=== PATIENT | male | born 1935 | race Caucasian/White ===

== ENCOUNTER 2017-12-02 09:32 | Emergency (ER) | payer MEDICARE, BC ==
[2017-12-02 09:53] VITALS: BP 160/80
--- NOTE | 2017-12-02 10:18 | EDM.PDOC ---
ED HPI GENERAL MEDICAL PROBLEM - General Chief Complaint: Lower Extremity Injury/Pain Stated Complaint: RIGHT KNEE PAIN Time Seen by Provider: 12/02/17 10:17 Source of Information: Reports: Patient History Limitations: Reports: No Limitations - History of Present Illness INITIAL COMMENTS - FREE TEXT/NARRATIVE: Pt arrived with pain in the rt knee. He was loading a trencher onto the trailer and he twisted the knee. Onset: Gradual, Other (Last 2 days. He has pain when he walks on it. ) Duration: Hour(s): Location: Reports: Lower Extremity, Right Associated Symptoms: Reports: No Other Symptoms Right Knee Pain Score (Numeric/FACES): 6 - Related Data Allergies Allergy/AdvReac Type Severity Reaction Status Date / Time No Known Allergies Allergy Verified 12/02/17 10:07 Home Meds: Home Meds Escitalopram [Lexapro] 20 mg PO DAILY 03/30/14 [History] Hydrocodone/Acetaminophen [[place] 5-325] 1 tab PO Q4H PRN 03/30/14 [History] Mirtazapine [Remeron] 30 mg PO BEDTIME 03/30/14 [History] Omeprazole [Prilosec] 20 mg PO DAILY 03/30/14 [History] traZODone 100 mg PO BEDTIME 03/30/14 [History] Past Medical History HEENT History: Reports: Hard of Hearing, Impaired Vision Respiratory History: Reports: Asthma, Pneumonia, Recurrent Gastrointestinal History: Reports: GERD Musculoskeletal History: Reports: Fracture, Osteoarthritis Neurological History: Reports: Concussion, MS Psychiatric History: Reports: Depression Oncologic (Cancer) History: Reports: Basal Cell Carcinoma Dermatologic History: Reports: Melanoma - Past Surgical History HEENT Surgical History: Reports: Oral Surgery, Tonsillectomy GI Surgical History: Reports: Colonoscopy, Hernia Repair/Other Musculoskeletal Surgical History: Reports: Hip Replacement, Shoulder Surgery Other Musculoskeletal Surgeries/Procedures:: bilateral hip replacement Dermatological Surgical History: Reports: Skin Biopsy Social & Family History - Tobacco Use Smoking Status *Q: Never Smoker - Caffeine Use Caffeine Use: Reports: Coffee - Recreational Drug Use Recreational Drug Use: No Review of Systems - Review of Systems Review Of Systems: See Below Constitutional: Reports: No Symptoms Eyes: Reports: No Symptoms Ears: Reports: No Symptoms Nose: Reports: No Symptoms Mouth/Throat: Reports: No Symptoms Respiratory: Reports: No Symptoms Cardiovascular: Reports: No Symptoms GI/Abdominal: Reports: No Symptoms Musculoskeletal: Reports: Other ( sEVERE PAIN IN THE RT KNEE. ) Skin: Reports: No Symptoms Neurological: Reports: No Symptoms ED EXAM, GENERAL - Physical Exam Exam: See Below Free Text/Narrative:: PT ARRIVED WITH SEVERE PAIN IN THE RT KNEE. hE DID A TWISTING MOTION WHEN HE WAS LOADING A TRENCHER. hE IS ON HYDROCODONE AND THIS IS NOT TOUCHING HIS PAIN. hE MAINLY HURTS WHEN HE WALKS ON THE KNEE. Exam Limited By: No Limitations General Appearance: Alert, Anxious, Moderate Distress Ears: Normal TMs Extremities: Other ( RT KNEE IS MILDLY SWOLLEN. iT IS NOT DISCOLORED. iT IS VERY PAINFUL WHEN HE TRIES TO WALK WITH IT. ) Neurological: Alert, Oriented, Normal Cognition Course - Vital Signs Last Recorded V/S: Last Vital Signs Temp 36.4 C 12/02/17 10:09 Pulse 53 L 12/02/17 10:09 Resp 13 12/02/17 10:09 BP 160/80 H 12/02/17 10:09 Pulse Ox 94 L 12/02/17 10:09 - Orders/Labs/Meds Meds: Medications Discontinued Medications Generic Name Dose Route Start Last Admin Trade Name Freq PRN Reason Stop Dose Admin Oxycodone/Acetaminophen 1 tab 12/02/17 11:13 Percocet 325-5 Mg PO 12/02/17 11:14 ONETIME ONE - Re-Assessments/Exams Free Text/Narrative Re-Assessment/Exam: 12/02/17 11:51 XRAY REVEALS A JOINT EFFUSION. hE HAS NO FRACTURES. wILL PLACE A KNEE IMBOLIZER. COOL PACK THE SITE. CONTINUE TO USE THE WALKER. hIS HYDROCODONE WILL BE ON HOLD AND HE WILL BE SWITCHED TO PERCOCET FOR THE NEXT 2-3 DAYS AND THEN RESUME THE HYDROCODONE. hE WILL SEE dR Wagner IN 5-6 DAYS. iF NO BETTER HE SHOULD HAVE A mRi Departure - Departure Time of Disposition: 11:18 Disposition: Home, Self-Care 01 Condition: Fair Clinical Impression: Joint effusion of knee, Sprain of knee - Discharge Information Referrals: Charles Mata MD [Primary Care Provider] - Forms: ED Department Discharge Care Plan Goals: pt has no fractures but does have fluid on the joint. knee imbolizer, cont to use the waLKER, ICE TO THE RT KNEE. REPLACE HYDROCPODONE FOR THE NEXT 3 DAYS WITH PERCOCET THEN RESUME THE HYDROCODONE, APPT WITH dR Mata IN 6-7 DAYS, iF NOT IMPROVING WILL NEED A mri OF THE JOINT. F
--- NOTE | 2017-12-02 11:10 | CR ---
Knee 3V Rt INDICATION: pain in the rt knee. COMPARISON: None FINDINGS: 3 views. No fracture, dislocation, or other acute bony abnormality. There is a joint ef fusion. No joint space narrowing.
[2017-12-02] MEDS ORDERED: Acetaminophen/oxyCODONE 325-5 MG Tab PO ONE (11:13)
== END 2017-12-02 12:03 | disposition home or self-care (01) ==
LOC: JP.ED 09:32
DX: S83.91XA Sprain of unspecified site of right knee, initial encounter (principal); M19.90 Unspecified osteoarthritis, unspecified site; Z79.899 Other long term (current) drug therapy; X50.9XXA Other and unspecified overexertion or strenuous movements or postures, initial encounter
CPT/HCPCS: 73562-26-RT; 73562-RT; 99284

== ENCOUNTER 2019-09-05 10:29 | Emergency (ER) | payer BC, MEDICARE ==
[2019-09-05 10:37] VITALS: BP 190/66; PULSE 57
[2019-09-05] MEDS ORDERED: HYDROmorphone 0.5 MG/0.5 ML Syringe IVPUSH ONE (11:05)
[2019-09-05] MEDS ORDERED: Sodium Chloride 0.9% 10 ML Syringe FLUSH PRN (11:06)
[2019-09-05] MEDS ORDERED: Diphtheria,Pertussis(Acell),Tetanus Vaccine 0.5 ML SDV IM ONE (11:09)
--- NOTE | 2019-09-05 11:10 | EDM.PDOC ---
ED HPI GENERAL MEDICAL PROBLEM - General Chief Complaint: Laceration Stated Complaint: CUT THE TIP OF HIS LEFT THUMB Time Seen by Provider: 09/05/19 11:08 Source of Information: Reports: Patient History Limitations: Reports: No Limitations - History of Present Illness INITIAL COMMENTS - FREE TEXT/NARRATIVE: pt arrived with a ampitation of the tip of the thumb. He was in the shop and cut the tip of the thumb off down to the level of the mid finger nail. Onset: Today, Sudden Duration: Hour(s): Location: Reports: Upper Extremity, Left Severity: Moderate Associated Symptoms: Reports: No Other Symptoms Left Finger-Thumb Pain Score (Numeric/FACES): 7 - Related Data Allergies Allergy/AdvReac Type Severity Reaction Status Date / Time No Known Allergies Allergy Verified 12/02/17 10:07 Home Meds: Home Meds Escitalopram [Lexapro] 20 mg PO DAILY 03/30/14 [History] Hydrocodone/Acetaminophen [[place] 5-325] 1 tab PO Q4H PRN 03/30/14 [History] Mirtazapine [Remeron] 30 mg PO BEDTIME 03/30/14 [History] Omeprazole [Prilosec] 20 mg PO DAILY 03/30/14 [History] traZODone 100 mg PO BEDTIME 03/30/14 [History] Past Medical History HEENT History: Reports: Hard of Hearing, Impaired Vision Respiratory History: Reports: Asthma, Pneumonia, Recurrent Gastrointestinal History: Reports: GERD Musculoskeletal History: Reports: Fracture, Osteoarthritis Neurological History: Reports: Concussion, MS Psychiatric History: Reports: Depression Oncologic (Cancer) History: Reports: Basal Cell Carcinoma Dermatologic History: Reports: Melanoma - Past Surgical History HEENT Surgical History: Reports: Oral Surgery, Tonsillectomy GI Surgical History: Reports: Colonoscopy, Hernia Repair/Other Musculoskeletal Surgical History: Reports: Hip Replacement, Shoulder Surgery Other Musculoskeletal Surgeries/Procedures:: bilateral hip replacement Dermatological Surgical History: Reports: Skin Biopsy Social & Family History - Tobacco Use Smoking Status *Q: Never Smoker - Caffeine Use Caffeine Use: Reports: Coffee - Alcohol Use Days Per Week of Alcohol Use: 7 Number of Drinks Per Day: 2 Total Drinks Per Week: 14 - Recreational Drug Use Recreational Drug Use: No ED ROS GENERAL - Review of Systems Review Of Systems: See Below Constitutional: Reports: No Symptoms HEENT: Reports: No Symptoms Respiratory: Reports: No Symptoms Cardiovascular: Reports: No Symptoms Endocrine: Reports: No Symptoms GI/Abdominal: Reports: No Symptoms : Reports: No Symptoms Musculoskeletal: Reports: Other ( amputaion of the left thumb. ) ED EXAM, SKIN/RASH Exam: See Below Text/Narrative:: pt arrived with a mputation of the very tip of the left thumb. A very small piece of the tuft is removed. Exam Limited By: No Limitations General Appearance: Alert Extremities: Other (left thumb gor caught in a table saw and the very tip was amputated. ) Neurological: Alert, Oriented, Normal Cognition Course - Vital Signs Last Recorded V/S: Last Vital Signs Temp 35.8 C L 09/05/19 10:38 Pulse 57 L 09/05/19 10:38 Resp 16 09/05/19 10:38 BP 190/66 H 09/05/19 10:38 Pulse Ox 96 09/05/19 10:38 - Orders/Labs/Meds Meds: Medications Discontinued Medications Generic Name Dose Route Start Last Admin Trade Name Freq PRN Reason Stop Dose Admin Diphtheria/Tetanus/Acell Pertussis 0.5 ml 09/05/19 11:09 09/05/19 11:31 Adacel IM 09/05/19 11:10 0.5 ml .ONCE ONE Administration Hydromorphone HCl 0.5 mg 09/05/19 11:05 09/05/19 11:30 Dilaudid IVPUSH 09/05/19 11:06 0.5 mg ONETIME ONE Administration Cefazolin Sodium/Dextrose 1 gm 50 mls @ 100 mls/hr 09/05/19 12:15 09/05/19 12 :06 / Premix IV 09/05/19 12:44 100 mls/hr ONETIME ONE Administration Sodium Chloride 10 ml 09/05/19 11:06 09/05/19 11:33 Saline Flush FLUSH 10 ml ASDIRECTED PRN Administration Keep Vein Open - Re-Assessments/Exams Free Text/Narrative Re-Assessment/Exam: 09/05/19 11:48 xray reveal just a small part of the tuft was removed. He was given a tetanus booster. He was givn a gram of ancef. He was seen by ortho and he is going to let this granualate in and follow closely. Departure - Departure Time of Disposition: 11:49 Disposition: Home, Self-Care 01 Condition: Fair Clinical Impression: Amputation, thumb, traumatic - Discharge Information Instructions: Traumatic Finger Amputation Referrals: Charles Mata MD [Primary Care Provider] - Forms: ED Department Discharge Care Plan Goals: change dressing daily after cleaning, redress with a nonstick dressing--adaptic , keflex 500mg tid for 1 week, norco 5/325 q6h as needed for severe pain. Pt is chronicly on norco so will give him an extra 10 tablets because of the acute injury. appt with ortho on september 11 at 10 AM. Sepsis Event Note - Evaluation Sepsis Screening Result: No Definite Risk - Focused Exam Date Exam was Performed: 09/07/19 Time Exam was Performed: 08:30
[2019-09-05] MEDS ORDERED: ceFAZolin 1 GM in Sodium Chloride 0.9% 50 ML IV ONE (11:34)
--- NOTE | 2019-09-05 12:04 | CR ---
Fingers Thumb Lt FA CLINICAL HISTORY: Amputation FINDINGS: There is septation of the tip of the thumb soft tissues. The this extends to the tuft of the distal phalanx. There appears to be a minimal amputation of the very distal tuft. There is osteoarthritic change in the interphalangeal joint IMPRESSION: Amputation of the tip of the thumb soft tissue and small amputation of the tuft of the distal phalanx
[2019-09-05] MEDS ORDERED: ceFAZolin 1 GM in Premix Bag 1 BAG IV ONE (12:15)
== END 2019-09-05 13:00 | disposition home or self-care (01) ==
LOC: JP.ED 10:29
DX: S68.512A Complete traumatic transphalangeal amputation of left thumb, initial encounter (principal); K21.9 Gastro-esophageal reflux disease without esophagitis; F32.9 Major depressive disorder, single episode, unspecified; Z23 Encounter for immunization; Z98.890 Other specified postprocedural states; Z79.899 Other long term (current) drug therapy; W23.0XXA Caught, crushed, jammed, or pinched between moving objects, initial encounter
CPT/HCPCS: 73140; 90471; 90715; 96365; 96375; 99283; J0690; J1170

== ENCOUNTER 2020-05-02 01:07 | Emergency (ER) | payer MEDICARE ==
[2020-05-02] MEDS ORDERED: Acetaminophen 325 MG Tab PO PRN (01:28)
[2020-05-02] MEDS ORDERED: Sodium Chloride 0.9% 10 ML Syringe FLUSH PRN (01:28)
[2020-05-02] MEDS ORDERED: Sodium Chloride 0.9% 1,000 ML IV SCH (01:30)
--- NOTE | 2020-05-02 01:40 | EDM.PDOC ---
<OfficerBennett - Last Filed: 05/02/20 06:33> ED HPI GENERAL MEDICAL PROBLEM - General Chief Complaint: Respiratory Problem Stated Complaint: WEAK/LABORED BREATHING Time Seen by Provider: 05/02/20 01:38 Source of Information: Reports: Patient, RN Notes Reviewed History Limitations: Reports: No Limitations - History of Present Illness INITIAL COMMENTS - FREE TEXT/NARRATIVE: 84-year-old gentleman presents emergency department today with complaint of shortness of breath, he states his been short of breath for about the last 3 to 4 days he does have a known history of chronic lymphocytic leukemia he is unsure of if any exposures but he has had some traveling and has had fevers at home Back Pain Score (Numeric/FACES): 5 - Related Data Allergies Allergy/AdvReac Type Severity Reaction Status Date / Time No Known Allergies Allergy Verified 05/02/20 01:19 Home Meds: Home Meds Escitalopram [Lexapro] 30 mg PO DAILY 03/30/14 [History] Mirtazapine [Remeron] 60 mg PO BEDTIME 03/30/14 [History] Omeprazole [Prilosec] 20 mg PO DAILY 03/30/14 [History] traZODone 100 mg PO BEDTIME 03/30/14 [History] Acetaminophen/HYDROcodone [Eva 325-5 MG] 1 tab PO Q4H 05/02/20 [History] Albuterol Sulfate [Proair Hfa] 2 puff INH Q4H 05/02/20 [History] Allopurinol [Zyloprim] 300 mg PO DAILY 05/02/20 [History] Amantadine [Symmetrel] 100 mg PO DAILY 05/02/20 [History] Imatinib [Gleevec] 400 mg PO DAILY 05/02/20 [History] Oxybutynin 5 mg PO BID 05/02/20 [History] Past Medical History HEENT History: Reports: Hard of Hearing, Impaired Vision Respiratory History: Reports: Asthma, Pneumonia, Recurrent Gastrointestinal History: Reports: GERD Musculoskeletal History: Reports: Fracture, Osteoarthritis, Other (See Below) Other Musculoskeletal History: cut tip of L thumb off- 09/05/19 Neurological History: Reports: Concussion, MS Psychiatric History: Reports: Depression Oncologic (Cancer) History: Reports: Basal Cell Carcinoma, Leukemia Dermatologic History: Reports: Melanoma - Past Surgical History HEENT Surgical History: Reports: Oral Surgery, Tonsillectomy GI Surgical History: Reports: Colonoscopy, Hernia Repair/Other Musculoskeletal Surgical History: Reports: Hip Replacement, Shoulder Surgery Other Musculoskeletal Surgeries/Procedures:: bilateral hip replacement Dermatological Surgical History: Reports: Skin Biopsy Social & Family History - Tobacco Use Tobacco Use Status *Q: Never Tobacco User - Caffeine Use Caffeine Use: Reports: Soda - Recreational Drug Use Recreational Drug Use: No ED ROS GENERAL - Review of Systems Review Of Systems: See Below Constitutional: Reports: Fever, Chills HEENT: Reports: No Symptoms Respiratory: Reports: Shortness of Breath, Cough Cardiovascular: Reports: Dyspnea on Exertion GI/Abdominal: Reports: No Symptoms ED EXAM, GENERAL - Physical Exam Exam: See Below Exam Limited By: No Limitations General Appearance: Alert, WD/WN, No Apparent Distress Respiratory/Chest: No Respiratory Distress, Lungs Clear, Normal Breath Sounds, No Accessory Muscle Use, Chest Non-Tender Cardiovascular: Regular Rate, Rhythm, No Murmur GI/Abdominal: Soft, Non-Tender Departure - Departure Disposition: Home, Self-Care 01 Clinical Impression: Pneumonia Qualifiers: Pneumonia type: due to unspecified organism Laterality: right Lung location: lower lobe of lung Qualified Code(s): J18.9 - Pneumonia, unspecified organism - Discharge Information Instructions: Community-Acquired Pneumonia, Adult, [id number] Referrals: Charles Mata MD [Primary Care Provider] - Forms: ED Department Discharge Care Plan Goals: Continue your current medicines except for the Geevac until labs are redrawn and you communicate with your oncologist next week. 1 dose of antibiotic daily for 7 consecutive days as prescribed. Return anytime if worsening despite treatment. Sepsis Event Note (ED) - Evaluation Sepsis Screening Result: Possible Severe Sepsis Risk - Assessment/Plan Plan: Assessment Acuity = acute Site and laterality = possible sepsis versus pulmonary embolism versus medical reaction to Gleevec Etiology = unknown Manifestations = none Location of injury = Home Lab values = WBC elevated 16.9 consistent with leukocytosis hemoglobin low at 8.2 consistent with microchromic anemia D-dimer elevated 1020 of uncertain significance creatinine elevated 1.8 consistent with acute renal failure stage G3 B baseline 5 days ago was 1.0 lactic acid elevated 3.2 consistent lactic acidosis ferritin elevated 829 LDH elevated 268 troponin elevated at 0.444 of unclear significance CRP elevated 20.1 BNP elevated 17,681 Covid was negative x2, influenza negative chest x-ray shows patchy infiltrates in the bases mild cardiomegaly no congestive heart failure EKG demonstrates sinus rhythm there is no ST elevations or depressions Plan Call discussed case Dr. Salvador emergency room physician at [facility], they would currently accept the patient unfortunately they do not have beds at this time they asked if we could hold the patient for a couple hours when a bed opens up they will call us for transfer. Recommended treating like sepsis blood cultures have been done will start broad-spectrum antibiotics of vancomycin and Zosyn also the possibility of pulmonary embolism therefore heparin bolus with heparin drip will be initiated cannot do a CT scan to rule this out at this time as his kidney function is poor. He will stay in the emergency department until a bed becomes available and then he will be transferred to [facility] via EMS ground This note was dictated using [employer] voice recognition software please call with any questions on syntax or grammar. <Aidan Emerson - Last Filed: 05/02/20 18:01> Course - Vital Signs Last Recorded V/S: Last Vital Signs Temp 98.3 F 05/02/20 06:09 Pulse 73 05/02/20 09:35 Resp 16 05/02/20 09:35 BP 109/58 L 05/02/20 09:35 Pulse Ox 99 05/02/20 09:35 - Orders/Labs/Meds Orders: Active Orders 24 hr Category Date Time Status CULTURE BLOOD [BC] Urgent Lab 05/02/20 03:30 Received CULTURE BLOOD [BC] Urgent Lab 05/02/20 04:00 Received Blood Culture x2 Reflex Set [OM.PC] Urgent Oth 05/02/20 06:23 Ordered Isolation [COMM] Routine Oth 05/02/20 01:29 Ordered Isolation [COMM] Stat Oth 05/02/20 01:28 Ordered Isolation [COMM] Stat Oth 05/02/20 02:38 Ordered Peripheral IV Insertion Adult [OM.PC] Routine Oth 05/02/20 01:28 Ordered EKG 12 Lead [EK] Routine Ther 05/02/20 04:30 Ordered Labs: Laboratory Tests 05/02/20 05/02/20 05/02/20 Range/Units 01:25 01:25 01:25 WBC 16.9 H (4.5-11.0) K/uL RBC 2.35 L (4.30-5.90) M/uL Hgb 8.2 L (12.0-15.0) g/dL Hct 27.0 L (40.0-54.0) % MCV 115 H (80-98) fL MCH 35 H (27-31) pg MCHC 30 L (32-36) % Plt Count 209 (150-400) K/uL Neut % (Auto) 96 H (36-66) % Lymph % (Auto) 2 L (24-44) % [place] % (Auto) 2 (2-6) % Eos % (Auto) 0 L (2-4) % Baso % (Auto) 0 (0-1) % D-Dimer, Quantitative (0.0-400.0) ng/mL Sodium 135 L (140-148) mmol/L Potassium 4.6 (3.6-5.2) mmol/L Chloride 99 L (100-108) mmol/L Carbon Dioxide 26 (21-32) mmol/L Anion Gap 14.6 H (5.0-14.0) mmol/L BUN 30 H (7-18) mg/dL Creatinine 1.8 H (0.8-1.3) mg/dL Est Cr Clr Drug Dosing 28.06 mL/min Estimated GFR (MDRD) 36 L (>60) Glucose 158 H (74-106) mg/dL Lactic Acid 3.2 H (0.4-2.0) mmol/L Calcium 8.1 L (8.5-10.1) mg/dL Ferritin (8-388) ng/ml Total Bilirubin 0.3 (0.2-1.0) mg/dL Direct Bilirubin 0.17 (0.0-0.2) mg/dL Indirect Bilirubin 0.13 AST 29 (15-37) U/L ALT 24 (12-78) U/L Alkaline Phosphatase 99 (46-116) U/L Lactate Dehydrogenase 268 H (85-227) U/L Troponin I (0.000-0.056) ng/mL C-Reactive Protein 20.10 H (0.0-0.3) mg/dL NT-Pro-B Natriuret Pep (5-450) pg/mL Total Protein 6.4 (6.4-8.2) g/dL Albumin 3.0 L (3.4-5.0) g/dL Globulin 3.4 (2.3-3.5) g/dL Albumin/Globulin Ratio 0.9 L (1.2-2.2) Procalcitonin ng/mL Urine Color (YELLOW) Urine Appearance (CLEAR) Urine pH (5.0-8.0) Ur Specific [place] (1.008-1.030) Urine Protein (NEGATIVE) mg/dL Urine Glucose (UA) (NEGATIVE) mg/dL Urine Ketones (NEGATIVE) mg/dL Urine Occult Blood (NEGATIVE) Urine Nitrite (NEGATIVE) Urine Bilirubin (NEGATIVE) Urine Urobilinogen (0.2-1.0) EU/dL Ur Leukocyte Esterase (NEGATIVE) Urine RBC (0-5) Urine WBC (0-5) Ur Epithelial Cells Amorphous Sediment Urine Bacteria Urine Mucus Urine Other SARS-CoV-2 RNA (CYNTHIA) (NEGATIVE) 05/02/20 05/02/20 05/02/20 Range/Units 01:25 01:28 02:37 WBC (4.5-11.0) K/uL RBC (4.30-5.90) M/uL Hgb (12.0-15.0) g/dL Hct (40.0-54.0) % MCV (80-98) fL MCH (27-31) pg MCHC (32-36) % Plt Count (150-400) K/uL Neut % (Auto) (36-66) % Lymph % (Auto) (24-44) % [place] % (Auto) (2-6) % Eos % (Auto) (2-4) % Baso % (Auto) (0-1) % D-Dimer, Quantitative 1020 H (0.0-400.0) ng/mL Sodium (140-148) mmol/L Potassium (3.6-5.2) mmol/L Chloride (100-108) mmol/L Carbon Dioxide (21-32) mmol/L Anion Gap (5.0-14.0) mmol/L BUN (7-18) mg/dL Creatinine (0.8-1.3) mg/dL Est Cr Clr Drug Dosing mL/min Estimated GFR (MDRD) (>60) Glucose (74-106) mg/dL Lactic Acid (0.4-2.0) mmol/L Calcium (8.5-10.1) mg/dL Ferritin (8-388) ng/ml Total Bilirubin (0.2-1.0) mg/dL Direct Bilirubin (0.0-0.2) mg/dL Indirect Bilirubin AST (15-37) U/L ALT (12-78) U/L Alkaline Phosphatase (46-116) U/L Lactate Dehydrogenase (85-227) U/L Troponin I (0.000-0.056) ng/mL C-Reactive Protein (0.0-0.3) mg/dL NT-Pro-B Natriuret Pep (5-450) pg/mL Total Protein (6.4-8.2) g/dL Albumin (3.4-5.0) g/dL Globulin (2.3-3.5) g/dL Albumin/Globulin Ratio (1.2-2.2) Procalcitonin 1.07 ng/mL Urine Color (YELLOW) Urine Appearance (CLEAR) Urine pH (5.0-8.0) Ur Specific [place] (1.008-1.030) Urine Protein (NEGATIVE) mg/dL Urine Glucose (UA) (NEGATIVE) mg/dL Urine Ketones (NEGATIVE) mg/dL Urine Occult Blood (NEGATIVE) Urine Nitrite (NEGATIVE) Urine Bilirubin (NEGATIVE) Urine Urobilinogen (0.2-1.0) EU/dL Ur Leukocyte Esterase (NEGATIVE) Urine RBC (0-5) Urine WBC (0-5) Ur Epithelial Cells Amorphous Sediment Urine Bacteria Urine Mucus Urine Other SARS-CoV-2 RNA (CYNTHIA) Negative (NEGATIVE) 05/02/20 05/02/20 05/02/20 Range/Units 02:44 02:44 02:45 WBC (4.5-11.0) K/uL RBC (4.30-5.90) M/uL Hgb (12.0-15.0) g/dL Hct (40.0-54.0) % MCV (80-98) fL MCH (27-31) pg MCHC (32-36) % Plt Count (150-400) K/uL Neut % (Auto) (36-66) % Lymph % (Auto) (24-44) % [place] % (Auto) (2-6) % Eos % (Auto) (2-4) % Baso % (Auto) (0-1) % D-Dimer, Quantitative (0.0-400.0) ng/mL Sodium (140-148) mmol/L Potassium (3.6-5.2) mmol/L Chloride (100-108) mmol/L Carbon Dioxide (21-32) mmol/L Anion Gap (5.0-14.0) mmol/L BUN (7-18) mg/dL Creatinine (0.8-1.3) mg/dL Est Cr Clr Drug Dosing mL/min Estimated GFR (MDRD) (>60) Glucose (74-106) mg/dL Lactic Acid (0.4-2.0) mmol/L Calcium (8.5-10.1) mg/dL Ferritin 829 H (8-388) ng/ml Total Bilirubin (0.2-1.0) mg/dL Direct Bilirubin (0.0-0.2) mg/dL Indirect Bilirubin AST (15-37) U/L ALT (12-78) U/L Alkaline Phosphatase (46-116) U/L Lactate Dehydrogenase (85-227) U/L Troponin I 0.440 H* (0.000-0.056) ng/mL C-Reactive Protein (0.0-0.3) mg/dL NT-Pro-B Natriuret Pep (5-450) pg/mL Total Protein (6.4-8.2) g/dL Albumin (3.4-5.0) g/dL Globulin (2.3-3.5) g/dL Albumin/Globulin Ratio (1.2-2.2) Procalcitonin ng/mL Urine Color (YELLOW) Urine Appearance (CLEAR) Urine pH (5.0-8.0) Ur Specific [place] (1.008-1.030) Urine Protein (NEGATIVE) mg/dL Urine Glucose (UA) (NEGATIVE) mg/dL Urine Ketones (NEGATIVE) mg/dL Urine Occult Blood (NEGATIVE) Urine Nitrite (NEGATIVE) Urine Bilirubin (NEGATIVE) Urine Urobilinogen (0.2-1.0) EU/dL Ur Leukocyte Esterase (NEGATIVE) Urine RBC (0-5) Urine WBC (0-5) Ur Epithelial Cells Amorphous Sediment Urine Bacteria Urine Mucus Urine Other SARS-CoV-2 RNA (CYNTHIA) Negative (NEGATIVE) 05/02/20 05/02/20 Range/Units 03:36 09:51 WBC (4.5-11.0) K/uL RBC (4.30-5.90) M/uL Hgb (12.0-15.0) g/dL Hct (40.0-54.0) % MCV (80-98) fL MCH (27-31) pg MCHC (32-36) % Plt Count (150-400) K/uL Neut % (Auto) (36-66) % Lymph % (Auto) (24-44) % [place] % (Auto) (2-6) % Eos % (Auto) (2-4) % Baso % (Auto) (0-1) % D-Dimer, Quantitative (0.0-400.0) ng/mL Sodium (140-148) mmol/L Potassium (3.6-5.2) mmol/L Chloride (100-108) mmol/L Carbon Dioxide (21-32) mmol/L Anion Gap (5.0-14.0) mmol/L BUN (7-18) mg/dL Creatinine (0.8-1.3) mg/dL Est Cr Clr Drug Dosing mL/min Estimated GFR (MDRD) (>60) Glucose (74-106) mg/dL Lactic Acid (0.4-2.0) mmol/L Calcium (8.5-10.1) mg/dL Ferritin (8-388) ng/ml Total Bilirubin (0.2-1.0) mg/dL Direct Bilirubin (0.0-0.2) mg/dL Indirect Bilirubin AST (15-37) U/L ALT (12-78) U/L Alkaline Phosphatase (46-116) U/L Lactate Dehydrogenase (85-227) U/L Troponin I (0.000-0.056) ng/mL C-Reactive Protein (0.0-0.3) mg/dL NT-Pro-B Natriuret Pep 33593 H (5-450) pg/mL Total Protein (6.4-8.2) g/dL Albumin (3.4-5.0) g/dL Globulin (2.3-3.5) g/dL Albumin/Globulin Ratio (1.2-2.2) Procalcitonin ng/mL Urine Color Yellow (YELLOW) Urine Appearance Turbid A (CLEAR) Urine pH 5.5 (5.0-8.0) Ur Specific [place] >= 1.030 (1.008-1.030) Urine Protein 30 H (NEGATIVE) mg/dL Urine Glucose (UA) Negative (NEGATIVE) mg/dL Urine Ketones Negative (NEGATIVE) mg/dL Urine Occult Blood Negative (NEGATIVE) Urine Nitrite Negative (NEGATIVE) Urine Bilirubin Negative (NEGATIVE) Urine Urobilinogen 0.2 (0.2-1.0) EU/dL Ur Leukocyte Esterase Negative (NEGATIVE) Urine RBC Not seen (0-5) Urine WBC 0-5 (0-5) Ur Epithelial Cells Not seen Amorphous Sediment Moderate Urine Bacteria Not seen Urine Mucus Moderate Urine Other SARS-CoV-2 RNA (CYNTHIA) (NEGATIVE) Meds: Medications Discontinued Medications Generic Name Dose Route Start Last Admin Trade Name Freq PRN Reason Stop Dose Admin Acetaminophen 650 mg 05/02/20 01:28 05/02/20 02:52 Tylenol PO 650 mg Q4H PRN Administration Fever Greater Than 101 Heparin Sodium (Porcine) 5,000 units 05/02/20 06:28 05/02/20 06:48 Heparin Sodium IVPUSH 05/02/20 06:29 5,000 units ONETIME ONE Administration Sodium Chloride 1,000 mls @ 999 mls/hr 05/02/20 01:30 05/02/20 01:30 Normal Saline IV 75 mls/hr ASDIRECTED [place] Administration Piperacillin Sod/Tazobactam 100 mls @ 100 mls/hr 05/02/20 06:30 05/02/20 06:48 Sod 4.5 gm/ Sodium Chloride IV 100 mls/hr Q6H DENVRE Administration Vancomycin HCl 1 gm/ Sodium 250 mls @ 150 mls/hr 05/02/20 07:00 05/02/20 08:00 Chloride IV Not Given Q24H [place]VER Heparin Sodium/Dextrose 25,000 units in 500 mls @ 27.76 mls/hr 05/02/20 06:30 05/02/20 06:57 Heparin 25,000 Units In D5w 500 Ml IV 18 units/kg/hr TITRATE [place] 27.76 mls/hr Administration Protocol 18 UNITS/KG/HR Vancomycin HCl 1.2 gm/ Sodium 250 mls @ 150 mls/hr 05/02/20 08:00 05/02/20 07:52 Chloride IV 150 mls/hr Q24H [place] Administration Sodium Chloride 10 ml 05/02/20 01:28 05/02/20 02:06 Saline Flush FLUSH 10 ml ASDIRECTED PRN Administration Keep Vein Open - Re-Assessments/Exams Free Text/Narrative Re-Assessment/Exam: 05/02/20 12:25 Patient care turned over from Officer pending transfer. However patient remained stable morning, received his IV antibiotics and the chest x-ray showed subtle basilar infiltrate possibly pneumonia. I had a long conversation with his oncologist at [facility], and he felt the patient could be treated at home with oral antibiotics. He was discharged on Levaquin 500 mg daily for 7 days, will stop his Geevac until labs are redrawn next Wednesday. Patient and his for in agreement with the plan, he will return if worsening. Departure - Departure Time of Disposition: 13:08 Sepsis Event Note (ED) - Focused Exam Vital Signs: Vital Signs Temp Pulse Resp BP Pulse Ox 05/02/20 09:35 73 16 109/58 L 99 05/02/20 08:35 77 16 99/54 L 99 05/02/20 07:00 70 16 110/53 L 99 05/02/20 06:09 98.3 F 78 10 L 109/48 L 99
--- NOTE | 2020-05-02 03:19 | CRLCR ---
HISTORY: Respiratory failure COMPARISON: None available FINDINGS: A portable erect AP view of the chest was obtained at 0115 hours. There is mild patchy density in the lung bases, right greater than left, consistent with atelectasis, although pneumonia cannot be entirely excluded. The rest of the chest is clear. There is no sign of any pleural effusion. The heart is mildly enlarged. The mediastinum is otherwise normal in appearance. The osseous structures are normal in appearance for the patient`s age. IMPRESSION: Mild patchy right greater than left basilar atelectasis, cannot entirely exclude pneumonia. Mild cardiomegaly without evidence of congestive failure. Dictated by Arsh Pond MD @ May 02 2020 3:15AM Signed by Dr. Arsh Pond @ May 02 2020 3:18AM
[2020-05-02] MEDS ORDERED: Heparin Sodium 5,000 Units/ML Vial IVPUSH ONE (06:28)
[2020-05-02] MEDS ORDERED: Heparin Sodium/D5W 25,000 UNITS/500 ML BAG IV SCH (06:30)
[2020-05-02] MEDS ORDERED: Piperacillin/Tazobactam 4.5 GM in Sodium Chloride 0.9% 100 ML IV SCH (06:30)
[2020-05-02] MEDS ORDERED: Vancomycin 1.2 GM in Sodium Chloride 0.9% 250 ML IV SCH (08:00)
[2020-05-02 09:37] VITALS: BP 109/58; PULSE 73
== END 2020-05-02 13:05 | disposition home or self-care (01) ==
LOC: JP.ED 01:07
DX: J18.9 Pneumonia, unspecified organism (principal); J45.909 Unspecified asthma, uncomplicated; K21.9 Gastro-esophageal reflux disease without esophagitis; F32.9 Major depressive disorder, single episode, unspecified; G35 Multiple sclerosis; M19.90 Unspecified osteoarthritis, unspecified site; Z79.899 Other long term (current) drug therapy; Z20.828 Contact with and (suspected) exposure to other viral communicable diseases
CPT/HCPCS: 36415; 71045; 80048; 80076; 81001; 82728; 83605; 83615; 83880; 84145; 84484; 85025; 85379; 86140; 87040; 87804; 93005; 96365; 96366; 96368; 99285; A9270; J1644; J2543; J3370; J7030; J7050; U0002; 93010; 99284

== ENCOUNTER 2023-08-14 09:58 | Emergency (ER) | payer MEDICARE ==
[2023-08-14 10:05] VITALS: BP 137/57; PULSE 80
[2023-08-14] MEDS ORDERED: Ketorolac 10 MG Tab PO ONE (10:56)
== END 2023-08-14 13:00 | disposition home or self-care (01) ==
LOC: JP.ED 09:58
DX: M79.662 Pain in left lower leg (principal); M62.838 Other muscle spasm; J45.909 Unspecified asthma, uncomplicated; K21.9 Gastro-esophageal reflux disease without esophagitis; Z79.899 Other long term (current) drug therapy
CPT/HCPCS: 73502; 73552; 99283; A9270

== ENCOUNTER 2024-04-20 10:28 | Emergency (ER) | payer MEDICARE ==
[2024-04-20 12:04] LABS: BASOPHILS ABSOLUTE AUTO 0.03 K/uL (0.00-0.10); BASOPHILS PERCENT AUTO 0.3 % (0.1-1.3); EOSINOPHILS ABSOLUTE AUTO 0.21 K/uL (0.00-0.40); EOSINOPHILS PERCENT AUTO 1.8 % (0.0-5.4); IMMATURE GRAN ABSOLUTE AUTO 0.04 K/uL (0.00-0.23); IMMATURE GRAN PERCENT AUTO 0.3 % (0.0-0.7); LYMPHOCYTES ABSOLUTE AUTO 0.74 K/uL (0.8-3.3); LYMPHOCYTES PERCENT AUTO 6.4 % (11.4-47.7); MEAN CORPUSCULAR HEMOGLOBIN 29.6 pg (31.6-35.5); MEAN CORPUSCULAR HGB CONC 30.6 g/dL (31.6-35.5); MEAN CORPUSCULAR VOLUME 96.8 fL (81.4-99.0); MONOCYTES PERCENT AUTO 7.7 % (3.3-12.6); NEUTROPHILS ABSOLUTE AUTO 9.73 K/uL (1.0-7.6); NEUTROPHILS PERCENT AUTO 83.5 % (40.0-78.1); PLATELET COUNT,PLT 243 K/uL (130-375); RED BLOOD CELL COUNT 3.72 M/uL (4.14-5.76); WHITE BLOOD CELL COUNT,WBC 11.7 K/uL (3.2-11.0)
[2024-04-20] MEDS: Albuterol/Ipratropium 3.0-0.5 MG/3 ML Neb Soln NEB ONE (12:17)
[2024-04-20 12:27] LABS: ALANINE AMINOTRANSFERASE,ALT 14 U/L (12-78); ALBUMIN 3.7 g/dL (3.4-5.0); ALKALINE PHOSPHATASE 124 U/L (46-116); ASPARTATE AMNIOTRANSFERASE,AST 16 U/L (15-37); BILIRUBIN TOTAL 0.4 mg/dL (0.2-1.0); BLOOD UREA NITROGEN,BUN 18 mg/dL (7-18); CALCIUM 8.7 mg/dL (8.5-10.1); CARBON DIOXIDE,CO2 31 mmol/L (21-32); CHLORIDE,CL 107 mmol/L (100-108); CREATININE 1.2 mg/dL (0.8-1.3); EST CRCL DRUG DOSING (CG) 40.55 mL/min; ESTIMATED GFR 59 mL/min (>60); GLUCOSE RANDOM 102 mg/dL (74-106); POTASSIUM,K 4.4 mmol/L (3.6-5.2); PROTEIN TOTAL,TP 7.3 g/dL (6.4-8.2); SODIUM,NA 144 mmol/L (140-148)
[2024-04-20 12:48] VITALS: PULSE 74
[2024-04-20 12:49] VITALS: BP 168/69
== END 2024-04-20 13:31 | disposition home or self-care (01) ==
LOC: JP.ED 10:28
DX: J20.9 Acute bronchitis, unspecified (principal); J45.909 Unspecified asthma, uncomplicated; K21.9 Gastro-esophageal reflux disease without esophagitis; Z79.899 Other long term (current) drug therapy
CPT/HCPCS: 36415; 71046; 71046-26; 80053; 85025; 94640; 99284; J7620

== ENCOUNTER 2024-08-13 09:00 | Inpatient (IN) | payer MEDICARE ==
[2024-08-13 09:22] LABS: BASOPHILS ABSOLUTE AUTO 0.03 K/uL (0.00-0.10); BASOPHILS PERCENT AUTO 0.2 % (0.1-1.3); EOSINOPHILS ABSOLUTE AUTO 0.15 K/uL (0.00-0.40); EOSINOPHILS PERCENT AUTO 0.8 % (0.0-5.4); HEMATOCRIT 33.9 % (38.4-49.7); HEMOGLOBIN 10.8 g/dL (12.9-16.9); IMMATURE GRAN ABSOLUTE AUTO 0.08 K/uL (0.00-0.23); IMMATURE GRAN PERCENT AUTO 0.4 % (0.0-0.7); LYMPHOCYTES ABSOLUTE AUTO 0.35 K/uL (0.8-3.3); LYMPHOCYTES PERCENT AUTO 1.9 % (11.4-47.7); MEAN CORPUSCULAR HEMOGLOBIN 29.3 pg (31.6-35.5); MEAN CORPUSCULAR HGB CONC 31.9 g/dL (31.6-35.5); MEAN CORPUSCULAR VOLUME 92.1 fL (81.4-99.0); MONOCYTES ABSOLUTE AUTO 0.84 K/uL (0.20-0.90); MONOCYTES PERCENT AUTO 4.5 % (3.3-12.6); NEUTROPHILS ABSOLUTE AUTO 17.36 K/uL (1.0-7.6); NEUTROPHILS PERCENT AUTO 92.2 % (40.0-78.1); PLATELET COUNT,PLT 247 K/uL (130-375); RED BLOOD CELL COUNT 3.68 M/uL (4.14-5.76); WHITE BLOOD CELL COUNT,WBC 18.8 K/uL (3.2-11.0)
[2024-08-13 09:45] LABS: BICARBONATE,ARTERIAL 27.1 mmol/L (22.0-26.0); CARBOXYHEMOGLOBIN 1.3 % (0.0-1.6); METHEMOGLOBIN 1.2 %; O2 SATURATION ARTERIAL 91.7 % (95.0-98.0); OXYHEMOGLOBIN 89.4 %; PCO2 ARTERIAL 46.9 mmHg (35.0-42.0); PO2 ARTERIAL 61.7 mmHg (75.0-100.0); TOTAL HEMOGLOBIN 10.9 g/dL (13.5-18.0)
[2024-08-13] MEDS: HYDROmorphone 0.5 MG/0.5 ML Syringe IVPUSH ONE (09:45)
[2024-08-13] MEDS: Sodium Chloride 0.9% 1,000 ML IV ONE (09:45)
[2024-08-13 09:46] LABS: LACTIC ACID 1.7 mmol/L (0.4-2.0)
[2024-08-13 09:50] LABS: A/G RATIO 0.9 (1.2-2.2); ALANINE AMINOTRANSFERASE,ALT 25 U/L (12-78); ALBUMIN 3.3 g/dL (3.4-5.0); ALKALINE PHOSPHATASE 106 U/L (46-116); ANION GAP 9.4 mmol/L (5.0-14.0); ASPARTATE AMNIOTRANSFERASE,AST 20 U/L (15-37); BILIRUBIN TOTAL 0.4 mg/dL (0.2-1.0); BLOOD UREA NITROGEN,BUN 36 mg/dL (7-18); CALCIUM 8.2 mg/dL (8.5-10.1); CARBON DIOXIDE,CO2 29 mmol/L (21-32); CHLORIDE,CL 104 mmol/L (100-108); CREATININE 1.5 mg/dL (0.8-1.3); EST CRCL DRUG DOSING (CG) 32.44 mL/min; ESTIMATED GFR 45 mL/min (>60); GLUCOSE RANDOM 119 mg/dL (74-106); POTASSIUM,K 4.2 mmol/L (3.6-5.2); PROTEIN TOTAL,TP 6.8 g/dL (6.4-8.2); SODIUM,NA 142 mmol/L (140-148)
[2024-08-13] MEDS: Levofloxacin/Dextrose 5%-Water 750 MG in Premix Bag 1 BAG IV ONE (09:50)
[2024-08-13 10:26] LABS: CORONAVIRUS COVID-19 NAA NEGATIVE (NEGATIVE); INFLUENZA A NAA NEGATIVE (NEGATIVE); INFLUENZA B NAA NEGATIVE (NEGATIVE); RESPIRATORY SYNCYTIAL VIR NAA NEGATIVE (NEGATIVE)
[2024-08-13] MEDS: Acetaminophen 500 MG Tab PO ONE (10:26)
[2024-08-13] MEDS: Sodium Chloride 0.9% 1,000 ML IV SCH ×2 (10:57→19:51)
[2024-08-13] MEDS ORDERED: VANCOmycin 1 GM SDV IV SCH (13:19)
[2024-08-13] MEDS ORDERED: Ondansetron 4 MG/2 ML SDV IV PRN (13:19)
[2024-08-13] MEDS ORDERED: Albuterol 0.083% 2.5 MG/3 ML Neb Soln NEB PRN (13:19)
[2024-08-13] MEDS ORDERED: Sodium Chloride 0.9% 1,000 ML IV SCH (13:19)
[2024-08-13] MEDS ORDERED: Sodium Chloride 0.9% 10 ML Syringe FLUSH PRN (13:19)
[2024-08-13] MEDS ORDERED: Piperacillin/Tazobactam 3.375 GM in Sodium Chloride 0.9% 100 ML IV ONE (14:15)
[2024-08-13] MEDS: Acetaminophen/HYDROcodone 325-5 MG Tab PO SCH ×2 (14:32→22:09)
[2024-08-13] MEDS: Piperacillin/Tazobactam 3.375 GM in Sodium Chloride 0.9% 100 ML IV ONE (14:33)
[2024-08-13] MEDS: Albuterol/Ipratropium 3.0-0.5 MG/3 ML Neb Soln NEB SCH (14:38)
[2024-08-13] MEDS: VANCOmycin 1 GM in Sodium Chloride 0.9% 250 ML IV SCH (15:32)
[2024-08-13] MEDS: Enoxaparin 40 MG/0.4 ML Syringe SUBCUT SCH (15:32)
[2024-08-13] MEDS: Rosuvastatin 5 MG Tab PO SCH (20:56)
[2024-08-13] MEDS: traZODone 50 MG Tab PO SCH (20:56)
[2024-08-13] MEDS: Mirtazapine 15 MG Tab PO SCH (20:56)
[2024-08-13] MEDS: Piperacillin/Tazobactam 3.375 GM in Sodium Chloride 0.9% 100 ML IV SCH (21:00)
[2024-08-14 05:46] LABS: HEMATOCRIT 30.5 % (38.4-49.7); HEMOGLOBIN 9.7 g/dL (12.9-16.9); MEAN CORPUSCULAR HEMOGLOBIN 29.1 pg (31.6-35.5); MEAN CORPUSCULAR HGB CONC 31.8 g/dL (31.6-35.5); MEAN CORPUSCULAR VOLUME 91.6 fL (81.4-99.0); RED BLOOD CELL COUNT 3.33 M/uL (4.14-5.76); WHITE BLOOD CELL COUNT,WBC 12.3 K/uL (3.2-11.0)
[2024-08-14 06:03] LABS: ANION GAP 7.5 mmol/L (5.0-14.0); CALCIUM 8.2 mg/dL (8.5-10.1); CREATININE 1.1 mg/dL (0.8-1.3); EST CRCL DRUG DOSING (CG) 44.23 mL/min; MAGNESIUM 2.2 mg/dL (1.8-2.4); POTASSIUM,K 4.6 mmol/L (3.6-5.2)
[2024-08-14] MEDS: Pantoprazole 40 MG Tab.CR PO SCH (07:33)
[2024-08-14] MEDS: Acetaminophen 325 MG Tab PO PRN (07:38)
[2024-08-14] MEDS ORDERED: predniSONE 20 MG Tab PO SCH (08:00)
[2024-08-14] MEDS ORDERED: Lisinopril 5 MG Tab PO SCH (09:00)
[2024-08-14] MEDS: Lisinopril 20 MG Tab PO SCH (09:26)
[2024-08-14] MEDS: Tamsulosin 0.4 MG Cap.ER PO SCH (09:26)
[2024-08-14] MEDS: AMANTADINE 100 MG PO SCH (09:31)
[2024-08-14] MEDS: Polyethylene Glycol 3350 Powder 17 GM Packet PO PRN (09:36)
[2024-08-15 06:04] LABS: HEMATOCRIT 28.6 % (38.4-49.7); HEMOGLOBIN 9.1 g/dL (12.9-16.9); MEAN CORPUSCULAR HEMOGLOBIN 29.1 pg (31.6-35.5); MEAN CORPUSCULAR HGB CONC 31.8 g/dL (31.6-35.5); MEAN CORPUSCULAR VOLUME 91.4 fL (81.4-99.0); RED BLOOD CELL COUNT 3.13 M/uL (4.14-5.76); WHITE BLOOD CELL COUNT,WBC 10.7 K/uL (3.2-11.0)
[2024-08-15 06:25] LABS: ANION GAP 7.4 mmol/L (5.0-14.0); CALCIUM 8.3 mg/dL (8.5-10.1); CREATININE 1.1 mg/dL (0.8-1.3); EST CRCL DRUG DOSING (CG) 44.23 mL/min; POTASSIUM,K 3.9 mmol/L (3.6-5.2)
[2024-08-15] MEDS: Levofloxacin/Dextrose 5%-Water 750 MG in Premix Bag 1 BAG IV SCH (09:45)
[2024-08-15 14:24] VITALS: BP 178/70; PULSE 63
== END 2024-08-15 15:02 | disposition home or self-care (01) | DRG 871 ==
LOC: JP.ED 09:00 → JP.MS 11:13
PROVIDERS: ADMIT Hospitalist; ATTEND Internal Medicine
DX: A41.9 Sepsis, unspecified organism (principal); J18.9 Pneumonia, unspecified organism; J45.909 Unspecified asthma, uncomplicated; J96.21 Acute and chronic respiratory failure with hypoxia; J96.02 Acute respiratory failure with hypercapnia; D84.9 Immunodeficiency, unspecified; J44.0 Chronic obstructive pulmonary disease with (acute) lower respiratory infection; H91.90 Unspecified hearing loss, unspecified ear; H54.7 Unspecified visual loss; K21.9 Gastro-esophageal reflux disease without esophagitis; M19.90 Unspecified osteoarthritis, unspecified site; F32.A Depression, unspecified; Z96.649 Presence of unspecified artificial hip joint; G35 Multiple sclerosis; J44.89 Other specified chronic obstructive pulmonary disease; Z66 Do not resuscitate; Z99.81 Dependence on supplemental oxygen; Z87.81 Personal history of (healed) traumatic fracture; Z90.89 Acquired absence of other organs; Z79.1 Long term (current) use of non-steroidal anti-inflammatories (NSAID); Z79.51 Long term (current) use of inhaled steroids; Z79.899 Other long term (current) drug therapy; Z79.02 Long term (current) use of antithrombotics/antiplatelets; Z98.890 Other specified postprocedural states; Z91.041 Radiographic dye allergy status
CPT/HCPCS: 0241U; 36415; 36600; 71045; 80048; 80053; 82803; 83605; 83735; 85025; 85027; 85379; 87040; 94640; 96365; 96375; 97161; 97530; 99285; A9270-GY; J1650; J1956; J2543; J7030; J7050; J7620

== ENCOUNTER 2024-12-13 09:53 | Day surgery (SDC) | payer MEDICARE ==
[2024-12-13] MEDS: Lactated Ringers 1,000 ML IV SCH (10:18)
[2024-12-13] MEDS ORDERED: Propofol 200 MG/20 ML SDV ONE (10:29)
[2024-12-13] MEDS ORDERED: fentaNYL 50 MCG/ML SDV ONE (10:29)
[2024-12-13 14:00] VITALS: BP 168/71; PULSE 55
== END 2024-12-13 14:04 | disposition home or self-care (01) ==
LOC: JP.SDS 09:53
PROVIDERS: ATTEND Surgery
DX: K92.2 Gastrointestinal hemorrhage, unspecified (principal); I10 Essential (primary) hypertension
CPT/HCPCS: 45378; J2704; J3010; J7120; 00811-QZ